=== PATIENT | male | born 1950 | race Caucasian/White ===

== ENCOUNTER 2017-07-17 19:24 | Emergency (ER) | payer MEDICARE, OTHER ==
[~2017-07-17] VITALS: Ht 185.4 cm; Wt 100.0 kg
[~2017-07-17 19:24] MED LIST: BENZ0.5T6 PO; DIVA500T52 PO; ENAL5 PO; LEVE500T53 PO; MULT1CAP32 PO; OXCA300T PO; QUET100T PO; QUET200T PO; QUET50TA PO; RALT400T PO; TRUVT PO
[2017-07-17] MEDS ORDERED: AMAN100C12 PO (20:31)
[2017-07-17] MEDS ORDERED: LOSA50TA37 PO (20:31)
[2017-07-17] MEDS ORDERED: FLUD25I SQ (20:31)
[2017-07-17] MEDS ORDERED: FAMO20 PO (20:31)
[2017-07-17] MEDS ORDERED: GABA-531 PO (20:31)
[2017-07-17] MEDS ORDERED: BENZ0.5T6 PO (20:31)
[2017-07-17] MEDS ORDERED: DSS100 PO (20:31)
[2017-07-17 21:03] LABS: BASOPHILS % (AUTO) 0.4 % (0.0-2.0); EOSINOPHILS % (AUTO) 1.6 % (1.0-6.0); HEMATOCRIT 44.4 % (41-53); LYMPHOCYTES # (AUTO) 2.4 K/uL (1.0-4.8); LYMPHOCYTES % (AUTO) 39.5 % (22.0-44.0); MEAN CORPUSCULAR HEMOGLOBIN 31.5 pg (26.0-34.0); MEAN CORPUSCULAR HGB CONC 33.7 G/dL (31.0-37.0); MEAN CORPUSCULAR VOLUME 93 fL (80-100); MONOCYTES # (AUTO) 0.4 K/uL (0.1-1.0); MONOCYTES % (AUTO) 7.2 % (2.0-9.0); NEUTROPHILS # (AUTO) 3.1 K/uL (1.8-7.7); NEUTROPHILS % (AUTO) 51.3 % (40.0-70.0); PLATELET COUNT (AUTO) 144 K/uL (150-450); RED BLOOD CELL COUNT(AUTO) 4.75 MIL/uL (4.50-5.90); RED CELL DISTRIBUTION WIDTH 15.2 % (11.5-14.5); WHITE BLOOD COUNT (AUTO) 6.1 K/uL (4.5-11.0)
[2017-07-17 21:15] LABS: ANION GAP 5 mmol/L (8-16); CALCIUM, TOTAL 9.4 mg/dL (8.8-10.5); CARBON DIOXIDE 34 mmol/L (22-29); CHLORIDE 102 mmol/L (98-107); CREATININE 0.96 mg/dL (0.60-1.30); GLOMERULAR FILTR. RATE CALC > 60 mL/min (>60); POTASSIUM 4.4 mmol/L (3.5-5.1); SODIUM SERUM 141 mmol/L (136-145); UREA NITROGEN, BLOOD 20 mg/dL (7-18)
[2017-07-17 21:21] LABS: ALANINE AMINOTRANSFERASE 25 U/L (12-78); ALBUMIN 3.8 g/dL (3.4-5.0); ASPARTATE AMINOTRANSFERASE 11 U/L (15-37); BILIRUBIN,TOTAL 0.4 mg/dL (0.1-1.0); TOTAL PROTEIN, SERUM 7.5 g/dL (6.4-8.2)
[2017-07-17 21:33] LABS: VALPROIC ACID < 3 mcg/mL (50-100)
[2017-07-17 23:26] VITALS: BP 117/69
== END 2017-07-17 23:56 | disposition home or self-care (01) ==
LOC: EMS 19:26
DX: F20.0 Paranoid schizophrenia (principal); I10 Essential (primary) hypertension; J44.9 Chronic obstructive pulmonary disease, unspecified; K21.9 Gastro-esophageal reflux disease without esophagitis; F17.210 Nicotine dependence, cigarettes, uncomplicated; Z88.8 Allergy status to other drugs, medicaments and biological substances
CPT/HCPCS: 36415; 80053; 80164; 85025; 99284; 99406; G0480

== ENCOUNTER 2017-09-05 17:14 | Inpatient (IN) | payer MEDICARE, MEDICAID ==
[~2017-09-05] VITALS: Ht 185.4 cm; Wt 84.4 kg
[~2017-09-05 17:14] MED LIST changes: +AMAN100C12 PO; -DIVA500T52 PO; +DSS100 PO; -ENAL5 PO; +FAMO20 PO; +FLUD25I SQ; +GABA-531 PO; -LEVE500T53 PO; +LOSA50TA37 PO; -OXCA300T PO; -QUET100T PO; -QUET200T PO; -QUET50TA PO
[2017-09-05 18:40] LABS: BASOPHILS # (AUTO) 0.02 K/uL (0.00-0.20); BASOPHILS % (AUTO) 0.3 % (0.0-2.0); EOSINOPHILS # (AUTO) 0.07 K/uL (0.00-0.70); HEMOGLOBIN 15.3 g/dL (13.5-17.5); LYMPHOCYTES # (AUTO) 1.3 K/uL (1.0-4.8); MEAN CORPUSCULAR HEMOGLOBIN 30.9 pg (26.0-34.0); MEAN CORPUSCULAR HGB CONC 32.5 G/dL (31.0-37.0); MEAN CORPUSCULAR VOLUME 95 fL (80-100); MONOCYTES # (AUTO) 0.4 K/uL (0.1-1.0); MONOCYTES % (AUTO) 4.9 % (2.0-9.0); NEUTROPHILS # (AUTO) 5.7 K/uL (1.8-7.7); NEUTROPHILS % (AUTO) 76.9 % (40.0-70.0); PLATELET COUNT (AUTO) 151 K/uL (150-450); RED BLOOD CELL COUNT(AUTO) 4.95 MIL/uL (4.50-5.90); RED CELL DISTRIBUTION WIDTH 14.9 % (11.5-14.5)
[2017-09-05 18:49] LABS: ANION GAP 3 mmol/L (8-16); CALCIUM, TOTAL 8.8 mg/dL (8.8-10.5); CARBON DIOXIDE 32 mmol/L (22-29); CHLORIDE 104 mmol/L (98-107); CREATININE 1.08 mg/dL (0.60-1.30); GLOMERULAR FILTR. RATE CALC > 60 mL/min (>60); GLUCOSE,RANDOM 124 mg/dL (70-110); POTASSIUM 3.8 mmol/L (3.5-5.1); SODIUM SERUM 139 mmol/L (136-145); UREA NITROGEN, BLOOD 21 mg/dL (7-18)
[2017-09-05 18:55] LABS: ALANINE AMINOTRANSFERASE 38 U/L (12-78); ALBUMIN 3.7 g/dL (3.4-5.0); ALKALINE PHOSPHATASE 105 U/L (46-116); ASPARTATE AMINOTRANSFERASE 22 U/L (15-37); BILIRUBIN,TOTAL 0.2 mg/dL (0.1-1.0); TOTAL PROTEIN, SERUM 7.7 g/dL (6.4-8.2)
[2017-09-05] MEDS ORDERED: OLANZapine 5 MG RAPDIS TABLET PO PRN (19:45)
[2017-09-05] MEDS ORDERED: QUEtiapine FUMARATE 100 MG TABLET PO PRN (19:45)
[2017-09-05] MEDS ORDERED: LORazepam 2 MG TABLET PO PRN (19:45)
[2017-09-06 00:19] VITALS: BP 122/80
[2017-09-06] MEDS ORDERED: INFLUENZA VIRUS VACCINE QVS 2017-18 (3YR+)/PF 60 MCG/0.5 ML SYRINGE IM ONE (00:30)
[2017-09-06] MEDS ORDERED: PNEUMOCOCCAL VACCINE POLYVALENT 0.5 ML VIAL [PPSV23] IM ONE (02:00)
[2017-09-06 08:02] VITALS: BP 121/86
[2017-09-06] MEDS ORDERED: RALTEGRAVIR 400 MG TABLET PO ONE (09:00)
[2017-09-06] MEDS ORDERED: LOSARTAN POTASSIUM 25 MG TABLET PO SCH (09:00)
[2017-09-06] MEDS: NICOTINE 14 MG/24 HOUR PATCH TD SCH (09:22)
[2017-09-06] MEDS: DOCUSATE SODIUM 100 MG CAPSULE PO SCH ×2 (09:22→16:08)
[2017-09-06] MEDS: FluPHENAZine HCL 10 MG TABLET PO SCH ×2 (12:14→17:29)
[2017-09-06] MEDS: GABAPENTIN 300 MG CAPSULE PO SCH ×2 (12:15→17:29)
[2017-09-06] MEDS: FAMOTIDINE 20 MG TABLET PO SCH ×2 (13:11→16:08)
[2017-09-06] MEDS: AMANTADINE HCL 100 MG CAPSULE PO SCH ×2 (13:11→16:08)
[2017-09-06] MEDS: RALTEGRAVIR 400 MG TABLET PO SCH ×2 (13:11→16:08)
[2017-09-06 16:01] VITALS: BP 122/89
[2017-09-06] MEDS: LOSARTAN POTASSIUM 50 MG TABLET PO SCH (16:08)
[2017-09-06] MEDS: EMTRICITABINE/TENOFOVIR 200-300 MG TABLET PO SCH (16:08)
[2017-09-06] MEDS: BENZTROPINE MESYLATE 0.5 MG TABLET PO SCH (20:29)
[2017-09-06] MEDS: ZOLPIDEM TARTRATE 10 MG TABLET PO PRN (21:25)
[2017-09-07 06:52] VITALS: BP 119/72
[2017-09-07 08:14] VITALS: BP 123/73
[2017-09-07] MEDS: EMTRICITABINE/TENOFOVIR 200-300 MG TABLET PO SCH (08:17)
[2017-09-07] MEDS: GABAPENTIN 300 MG CAPSULE PO SCH ×2 (08:17→17:07)
[2017-09-07] MEDS: LOSARTAN POTASSIUM 50 MG TABLET PO SCH (08:17)
[2017-09-07] MEDS: DOCUSATE SODIUM 100 MG CAPSULE PO SCH ×2 (08:17→17:07)
[2017-09-07] MEDS: RALTEGRAVIR 400 MG TABLET PO SCH ×2 (08:18→17:07)
[2017-09-07] MEDS: FluPHENAZine HCL 10 MG TABLET PO SCH ×2 (08:18→17:07)
[2017-09-07] MEDS: AMANTADINE HCL 100 MG CAPSULE PO SCH ×2 (08:18→17:07)
[2017-09-07] MEDS: FAMOTIDINE 20 MG TABLET PO SCH ×2 (08:18→17:07)
[2017-09-07] MEDS: NICOTINE 14 MG/24 HOUR PATCH TD SCH (08:19)
[2017-09-07 16:30] VITALS: BP 118/86
[2017-09-07] MEDS: BENZTROPINE MESYLATE 0.5 MG TABLET PO SCH (20:39)
[2017-09-08] VITALS: BP 100/67
[2017-09-08] MEDS: ZOLPIDEM TARTRATE 10 MG TABLET PO PRN (02:39)
[2017-09-08 08:27] VITALS: BP 123/74
[2017-09-08] MEDS: AMANTADINE HCL 100 MG CAPSULE PO SCH ×2 (08:28→16:32)
[2017-09-08] MEDS: LOSARTAN POTASSIUM 50 MG TABLET PO SCH (08:28)
[2017-09-08] MEDS: FluPHENAZine HCL 10 MG TABLET PO SCH ×2 (08:28→16:31)
[2017-09-08] MEDS: FAMOTIDINE 20 MG TABLET PO SCH ×2 (08:28→16:31)
[2017-09-08] MEDS: EMTRICITABINE/TENOFOVIR 200-300 MG TABLET PO SCH (08:28)
[2017-09-08] MEDS: GABAPENTIN 300 MG CAPSULE PO SCH ×2 (08:28→16:32)
[2017-09-08] MEDS: RALTEGRAVIR 400 MG TABLET PO SCH ×2 (08:28→16:31)
[2017-09-08] MEDS: DOCUSATE SODIUM 100 MG CAPSULE PO SCH ×2 (08:28→16:32)
[2017-09-08] MEDS: NICOTINE 14 MG/24 HOUR PATCH TD SCH (08:29)
[2017-09-08 08:45] LABS: CHOL/HDL RATIO 3.1 (4.2-7.3)
[2017-09-08] MEDS ORDERED: ACETAMINOPHEN 325 MG TABLET PO PRN (15:00)
[2017-09-08] MEDS ORDERED: IBUPROFEN 600 MG TABLET PO PRN (15:00)
[2017-09-08 16:08] VITALS: BP 108/61
[2017-09-08] MEDS: BENZTROPINE MESYLATE 0.5 MG TABLET PO SCH (20:26)
[2017-09-09 07:06] VITALS: BP 109/68
[2017-09-09 08:20] VITALS: BP 113/65
[2017-09-09] MEDS: AMANTADINE HCL 100 MG CAPSULE PO SCH ×2 (08:26→17:57)
[2017-09-09] MEDS: NICOTINE 14 MG/24 HOUR PATCH TD SCH (08:26)
[2017-09-09] MEDS: LOSARTAN POTASSIUM 50 MG TABLET PO SCH (08:27)
[2017-09-09] MEDS: FAMOTIDINE 20 MG TABLET PO SCH ×2 (08:27→17:57)
[2017-09-09] MEDS: FluPHENAZine HCL 10 MG TABLET PO SCH ×2 (08:27→17:57)
[2017-09-09] MEDS: EMTRICITABINE/TENOFOVIR 200-300 MG TABLET PO SCH (08:27)
[2017-09-09] MEDS: RALTEGRAVIR 400 MG TABLET PO SCH ×2 (08:27→17:57)
[2017-09-09] MEDS: DOCUSATE SODIUM 100 MG CAPSULE PO SCH ×2 (08:27→17:57)
[2017-09-09] MEDS: GABAPENTIN 300 MG CAPSULE PO SCH ×2 (08:27→17:57)
[2017-09-09 15:27] LABS: GLUCOSE,POINT OF CARE 115 MG/DL (70-110)
[2017-09-09 16:07] LABS: GLUCOSE,POINT OF CARE 109 MG/DL (70-110)
[2017-09-09 17:55] VITALS: BP 121/68
[2017-09-09] MEDS: BENZTROPINE MESYLATE 0.5 MG TABLET PO SCH (20:32)
[2017-09-10] MEDS: ZOLPIDEM TARTRATE 10 MG TABLET PO PRN (02:52)
[2017-09-10 02:53] VITALS: BP 105/83
[2017-09-10 08:27] VITALS: BP 116/77
[2017-09-10] MEDS: EMTRICITABINE/TENOFOVIR 200-300 MG TABLET PO SCH (08:32)
[2017-09-10] MEDS: NICOTINE 14 MG/24 HOUR PATCH TD SCH (08:32)
[2017-09-10] MEDS: LOSARTAN POTASSIUM 50 MG TABLET PO SCH (08:32)
[2017-09-10] MEDS: RALTEGRAVIR 400 MG TABLET PO SCH ×2 (08:32→16:32)
[2017-09-10] MEDS: GABAPENTIN 300 MG CAPSULE PO SCH ×2 (08:32→16:31)
[2017-09-10] MEDS: FAMOTIDINE 20 MG TABLET PO SCH ×2 (08:33→16:32)
[2017-09-10] MEDS: AMANTADINE HCL 100 MG CAPSULE PO SCH ×2 (08:33→16:32)
[2017-09-10] MEDS: LevETIRAcetam 500 MG TABLET PO SCH ×2 (08:33→16:32)
[2017-09-10] MEDS: DOCUSATE SODIUM 100 MG CAPSULE PO SCH ×2 (08:33→16:32)
[2017-09-10] MEDS ORDERED: FluPHENAZine DECANOATE 25 MG/ML IM SCH (09:00)
[2017-09-10] MEDS ORDERED: LORazepam 0.5 MG TABLET PO PRN (12:45)
[2017-09-10 16:03] VITALS: BP 120/74
[2017-09-10] MEDS: BENZTROPINE MESYLATE 0.5 MG TABLET PO SCH (20:36)
[2017-09-10] MEDS ORDERED: TEMAZEPAM 15 MG CAPSULE PO SCH (21:00)
[2017-09-10] MEDS ORDERED: DONEPEZIL HCL 5 MG TABLET PO SCH (21:00)
[2017-09-11 07:06] VITALS: BP 118/68
[2017-09-11 08:15] LABS: BASOPHILS # (AUTO) 0.01 K/uL (0.00-0.20); BASOPHILS % (AUTO) 0.2 % (0.0-2.0); EOSINOPHILS % (AUTO) 1.82 % (1.0-6.0); HEMATOCRIT 44.2 % (41-53); HEMOGLOBIN 14.5 g/dL (13.5-17.5); LYMPHOCYTES % (AUTO) 35.7 % (22.0-44.0); MEAN CORPUSCULAR HEMOGLOBIN 30.8 pg (26.0-34.0); MEAN CORPUSCULAR HGB CONC 32.8 G/dL (31.0-37.0); MEAN CORPUSCULAR VOLUME 94 fL (80-100); MONOCYTES # (AUTO) 0.5 K/uL (0.1-1.0); MONOCYTES % (AUTO) 9.1 % (2.0-9.0); NEUTROPHILS % (AUTO) 53.2 % (40.0-70.0); PLATELET COUNT (AUTO) 134 K/uL (150-450); RED CELL DISTRIBUTION WIDTH 14.6 % (11.5-14.5)
[2017-09-11 08:38] VITALS: BP 106/70
[2017-09-11 08:43] LABS: ALANINE AMINOTRANSFERASE 31 U/L (12-78); ALBUMIN 3.1 g/dL (3.4-5.0); ALKALINE PHOSPHATASE 82 U/L (46-116); ANION GAP 7 mmol/L (8-16); ASPARTATE AMINOTRANSFERASE 15 U/L (15-37); BILIRUBIN,TOTAL 0.4 mg/dL (0.1-1.0); CALCIUM, TOTAL 8.5 mg/dL (8.8-10.5); CARBON DIOXIDE 29 mmol/L (22-29); CHLORIDE 102 mmol/L (98-107); CREATINE KINASE MB 0.9 ng/mL (0-5); CREATINE KINASE, TOTAL 87 U/L (39-308); CREATININE 0.88 mg/dL (0.60-1.30); GLOMERULAR FILTR. RATE CALC > 60 mL/min (>60); GLUCOSE,RANDOM 97 mg/dL (70-110); SODIUM SERUM 138 mmol/L (136-145); TOTAL PROTEIN, SERUM 6.7 g/dL (6.4-8.2); UREA NITROGEN, BLOOD 31 mg/dL (7-18)
[2017-09-11 08:45] VITALS: BP 110/80
[2017-09-11] MEDS: LevETIRAcetam 500 MG TABLET PO SCH (08:46)
[2017-09-11] MEDS: DOCUSATE SODIUM 100 MG CAPSULE PO SCH (08:46)
[2017-09-11] MEDS: LOSARTAN POTASSIUM 50 MG TABLET PO SCH (08:47)
[2017-09-11] MEDS: GABAPENTIN 300 MG CAPSULE PO SCH (08:47)
[2017-09-11] MEDS: NICOTINE 14 MG/24 HOUR PATCH TD SCH (08:47)
[2017-09-11] MEDS: EMTRICITABINE/TENOFOVIR 200-300 MG TABLET PO SCH (08:47)
[2017-09-11] MEDS: RALTEGRAVIR 400 MG TABLET PO SCH (08:47)
[2017-09-11] MEDS: AMANTADINE HCL 100 MG CAPSULE PO SCH (08:47)
[2017-09-11] MEDS: FAMOTIDINE 20 MG TABLET PO SCH (08:47)
[2017-09-11] MEDS ORDERED: TRUVT PO (10:22)
[2017-09-11] MEDS ORDERED: QUET100T PO (10:22)
[2017-09-11] MEDS ORDERED: IBUP-2070 PO (10:22)
[2017-09-11] MEDS ORDERED: LOSA50TA37 PO (10:22)
[2017-09-11] MEDS ORDERED: TEMA15CA PO (10:22)
[2017-09-11] MEDS ORDERED: LORA1TAB3 PO (10:22)
[2017-09-11] MEDS ORDERED: LEVE500T53 PO (10:22)
[2017-09-11] MEDS ORDERED: ZOLP10TA7 PO (10:22)
[2017-09-11] MEDS ORDERED: DONE5TAB5 PO (10:22)
[2017-09-16 05:15] LABS: HIV-1 ANTIBODY(MULTISPOT) Positive (Negative); HIV-2 ANTIBODY(MULTISPOT) Negative (Negative)
== END 2017-09-11 13:55 | DRG 885 ==
LOC: EMS 17:16 → B2X 21:13
PROVIDERS: ADMIT Psychiatry & Neurology Psychiatry; ATTEND Psychiatry & Neurology Psychiatry
PROC: 3E0234Z Introduction of Serum, Toxoid and Vaccine into Muscle, Percutaneous Approach (ICD-10-PCS; principal; 2017-09-06)
DX: F25.0 Schizoaffective disorder, bipolar type (principal); B18.2 Chronic viral hepatitis C; G93.40 Encephalopathy, unspecified; F03.90 Unspecified dementia, unspecified severity, without behavioral disturbance, psychotic disturbance, mood disturbance, and anxiety; J44.9 Chronic obstructive pulmonary disease, unspecified; G40.909 Epilepsy, unspecified, not intractable, without status epilepticus; K21.9 Gastro-esophageal reflux disease without esophagitis; K59.00 Constipation, unspecified; F17.200 Nicotine dependence, unspecified, uncomplicated; I10 Essential (primary) hypertension; Z87.820 Personal history of traumatic brain injury; Z79.899 Other long term (current) drug therapy; Z23 Encounter for immunization; Z88.8 Allergy status to other drugs, medicaments and biological substances; Z21 Asymptomatic human immunodeficiency virus [HIV] infection status
CPT/HCPCS: 82105; 82962; 86361; 86701; 86702; 87081; 87389; 99285; G0480; J2680

== ENCOUNTER 2017-09-09 12:27 | Emergency (ER) | payer MEDICARE, OTHER ==
[~2017-09-09] VITALS: Ht 188 cm; Wt 81.8 kg
[2017-09-09] MEDS ORDERED: LevETIRAcetam 1,000 MG in DEXTROSE 5%-WATER 100 ML IV ONE (15:00)
[2017-09-09 15:20] LABS: BASOPHILS # (AUTO) 0.01 K/uL (0.00-0.20); BASOPHILS % (AUTO) 0.2 % (0.0-2.0); EOSINOPHILS # (AUTO) 0.03 K/uL (0.00-0.70); EOSINOPHILS % (AUTO) 0.37 % (1.0-6.0); HEMATOCRIT 49.1 % (41-53); HEMOGLOBIN 15.9 g/dL (13.5-17.5); LYMPHOCYTES # (AUTO) 1.2 K/uL (1.0-4.8); LYMPHOCYTES % (AUTO) 15.3 % (22.0-44.0); MEAN CORPUSCULAR HEMOGLOBIN 30.6 pg (26.0-34.0); MEAN CORPUSCULAR HGB CONC 32.5 G/dL (31.0-37.0); MEAN CORPUSCULAR VOLUME 94 fL (80-100); MONOCYTES # (AUTO) 0.3 K/uL (0.1-1.0); MONOCYTES % (AUTO) 4.1 % (2.0-9.0); NEUTROPHILS # (AUTO) 6.5 K/uL (1.8-7.7); NEUTROPHILS % (AUTO) 80.1 % (40.0-70.0); PLATELET COUNT (AUTO) 148 K/uL (150-450); RED BLOOD CELL COUNT(AUTO) 5.21 MIL/uL (4.50-5.90); RED CELL DISTRIBUTION WIDTH 14.6 % (11.5-14.5)
[2017-09-09 15:32] LABS: ANION GAP 6 mmol/L (8-16); CALCIUM, TOTAL 9.7 mg/dL (8.8-10.5); CARBON DIOXIDE 32 mmol/L (22-29); CHLORIDE 101 mmol/L (98-107); CREATININE 0.83 mg/dL (0.60-1.30); GLOMERULAR FILTR. RATE CALC > 60 mL/min (>60); GLUCOSE,RANDOM 108 mg/dL (70-110); POTASSIUM 4.2 mmol/L (3.5-5.1); SODIUM SERUM 139 mmol/L (136-145); UREA NITROGEN, BLOOD 20 mg/dL (7-18)
[2017-09-09 15:39] LABS: ALANINE AMINOTRANSFERASE 36 U/L (12-78); ALBUMIN 3.9 g/dL (3.4-5.0); ALKALINE PHOSPHATASE 105 U/L (46-116); ASPARTATE AMINOTRANSFERASE 16 U/L (15-37); BILIRUBIN,TOTAL 0.4 mg/dL (0.1-1.0)
[2017-09-09] MEDS ORDERED: LevETIRAcetam 500 MG TABLET PO ONE (16:00)
[2017-09-09 16:50] VITALS: BP 142/78
== END 2017-09-09 17:20 | disposition home or self-care (01) ==
LOC: EMS 12:30
DX: G40.909 Epilepsy, unspecified, not intractable, without status epilepticus (principal); B19.20 Unspecified viral hepatitis C without hepatic coma; F20.0 Paranoid schizophrenia; I10 Essential (primary) hypertension; F17.210 Nicotine dependence, cigarettes, uncomplicated; J44.9 Chronic obstructive pulmonary disease, unspecified; K21.9 Gastro-esophageal reflux disease without esophagitis; Z98.890 Other specified postprocedural states; Z88.8 Allergy status to other drugs, medicaments and biological substances
CPT/HCPCS: 36415; 70450; 80053; 82948; 84484; 85025; 99285; J0712; J7060